=== PATIENT | female | born 1990 | race Caucasian/White ===

== ENCOUNTER 2019-07-21 02:55 | Emergency (ER) | payer OTHER ==
[~2019-07-21] VITALS: Ht 172.7 cm; Wt 59.0 kg
[2019-07-21 02:55] VITALS: BP 110/75
[~2019-07-21 02:55] MED LIST: synthroid
--- NOTE | 2019-07-21 03:26 | ED.ADGEN ---
Past History Past Medical History: Hypothyroid Past Surgical History: No Surgical History Alcohol Use: Occasionally Drug Use: None Adult General Chief Complaint Chief Complaint "I was walking my dog Lalo... about 7 am..... and he martine to humaira a cat... and he pulled me off the porch...and I twisted my foot and ankle.. I could not sleep tonight so I wanted to get it checked...".. " I got it on film... my security camera..." HPI HPI Patient is a 29 year old female who presents with above hx and complaints of right ankle and foot injury. Pt. localizes pain in lateral fifth metatarsal a nd malleolus of right ankle. Distal neurovascular is equal to left foot. There is some swelling as compared to left foot and ankle. No upper leg tenderness. Patient does give history of previous injury to right foot as a teenager. No other injuries reported. Review of Systems Review of Systems Constitutional: Denies fever or chills [] Eyes: Denies change in visual acuity, redness, or eye pain [] HENT: Denies nasal congestion or sore throat [] Respiratory: Denies cough or shortness of breath [] Cardiovascular: No additional information not addressed in HPI [] GI: Denies abdominal pain, nausea, vomiting, bloody stools or diarrhea [] : Denies dysuria or hematuria [] Musculoskeletal: Denies back pain or joint pain []complaints of right ankle and foot pain Integument: Denies rash or skin lesions [] Neurologic: Denies headache, focal weakness or sensory changes [] Endocrine: Denies polyuria or polydipsia [] All other systems were reviewed and found to be within normal limits, except as documented in this note. Family History Family History Noncontributory Current Medications Current Medications See nursing for home meds Allergies Allergies Allergies Coded Allergies Type Severity Reaction Last Updated Verified human papillomavirus vacc,qval Allergy Unknown 10/29/15 Yes walnut Allergy Unknown 10/29/15 Yes Physical Exam Physical Exam Constitutional: Well developed, well nourished, moderate acute distress, non- toxic appearance. [] HENT: Normocephalic, atraumatic, bilateral external ears normal, oropharynx moist, no oral exudates, nose normal. [] Eyes: PERRLA, EOMI, conjunctiva normal, no discharge. [] Neck: Normal range of motion, no tenderness, supple, no stridor. [] Cardiovascular:Heart rate regular rhythm, no murmur [] Lungs & Thorax: Bilateral breath sounds clear to auscultation [] Abdomen: Bowel sounds normal, soft, no tenderness, no masses, no pulsatile masses. [] Skin: Warm, dry, no erythema, no rash. [] Back: No tenderness, no CVA tenderness. [] Extremities: No tenderness, no cyanosis, no clubbing, ROM intact, no edema. [] Except findings in right foot and ankle Neurologic: Alert and oriented X 3, normal motor function, normal sensory function, no focal deficits noted. [] Psychologic: Affect normal, judgement normal, mood normal. [] Current Patient Data Vital Signs Vital Signs Date Time Temp Pulse Resp B/P (MAP) Pulse Ox O2 Delivery O2 Flow Rate FiO2 07/21/19 02:55 98.4 87 18 97 Room Air EKG EKG [] Radiology/Procedures Radiology/Procedures My interpretation of foot and ankle film shows no obvious dislocation or displacement fracture. There is some calcification possibly old injury on right fifth metatarsal head.[] Course & Med Decision Making Course & Med Decision Making Pertinent Labs and Imaging studies reviewed. (See chart for details). Distal neurovascular = Lt. foot after carmen and splint. Ice, elevation, rest, splint, crutches and follow-up primary care. Consider re-x-ray in 2 weeks if still very tender. Follow-up primary care. Take Tylenol and ibuprofen for pain. For marked pain may take Percocet up 4 times a day. [] Final Impression Final Impression 1. Rt foot and ankle sprain[] Dragon Disclaimer Dragon Disclaimer This electronic medical record was generated, in whole or in part, using a voice recognition dictation system. Dragon Disclaimer This chart was dictated in whole or in part using Voice Recognition software in a busy, high-work load, and often noisy Emergency Department environment. It may contain unintended and wholly unrecognized errors or omissions. PHILOMENA PETTIT MD Jul 21, 2019 03:26
[2019-07-21] MEDS ORDERED: OXYC1TAB15 PO (03:48)
--- NOTE | 2019-07-21 05:47 | RAD ---
ANKLE RIGHT 3V, FOOT RIGHT 3V DATE: 07/21/2019 3:16 AM INDICATION: Pain after injury COMPARISON: None. FINDINGS: Bones: There is no evidence of acute fracture or dislocation. Joints: The ankle mortise is congruent. No widening of the distal tibiofibular syndesmosis. Lisfranc's joint is congruent. Miscellaneous: None. IMPRESSION: No evidence of acute fracture. Electronically signed by: Jb Odom MD (07/21/2019 5:44 AM) [facility]
--- NOTE | 2019-07-21 05:47 | RAD ---
ANKLE RIGHT 3V, FOOT RIGHT 3V DATE: 07/21/2019 3:16 AM INDICATION: Pain after injury COMPARISON: None. FINDINGS: Bones: There is no evidence of acute fracture or dislocation. Joints: The ankle mortise is congruent. No widening of the distal tibiofibular syndesmosis. Lisfranc's joint is congruent. Miscellaneous: None. IMPRESSION: No evidence of acute fracture. Electronically signed by: Jb Odom MD (07/21/2019 5:44 AM) [id number]
== END 2019-07-21 04:00 | disposition home or self-care (01) ==
LOC: ER 02:55
DX: S93.401A Sprain of unspecified ligament of right ankle, initial encounter (principal); S93.601A Unspecified sprain of right foot, initial encounter; E03.9 Hypothyroidism, unspecified; Z88.7 Allergy status to serum and vaccine; Z91.018 Allergy to other foods; W50.2XXA Accidental twist by another person, initial encounter; Y92.89 Other specified places as the place of occurrence of the external cause; Y93.K1 Activity, walking an animal; Y99.8 Other external cause status
CPT/HCPCS: 29515; 73610; 73630; 99284